=== PATIENT | male | born 1975 | race Caucasian/White ===

== ENCOUNTER 2020-07-26 07:29 | Outpatient (CLI) | payer OTHER, SELFPAY ==
[2020-07-26 08:48] LABS: Hemoglobin A1C 5.9 % (<5.7)
== END 2020-07-26 07:30 | disposition home or self-care (01) ==
PROVIDERS: PCP Internal Medicine; Visit Provider Nurse Practitioner
DX: R73.9 Hyperglycemia, unspecified (principal)
CPT/HCPCS: 36415; 83036

== ENCOUNTER 2021-12-04 13:24 | Outpatient (CLI) | payer BC, SELFPAY ==
--- NOTE | ~2021-12-04 | CT_ITS ---
EXAMINATION: CT diagnostic chest wo con DATE: 12/04/2021 10:53 INDICATION: Shortness of breath TECHNIQUE: Computed tomography (CT) of the chest was performed without intravenous contrast. The dose -length product (DLP) was 469.57 mGy-cm. Automated exposure control and iterative reconstruction tech Equidate[employer] were employed. COMPARISON: None FINDINGS: The lungs are free of acute opacities. There is no pleural effusion or pneumothorax. No pat hologically enlarged thoracic lymph nodes are identified. The heart size is normal. There is a modera te-sized sliding hiatal hernia. IMPRESSION: 1. No acute cardiopulmonary abnormality. Reviewed, dictated and finalized at location A. ER GUARD
[2021-12-04 10:44] LABS: Basophils Percent Auto 0.5 % (0.2-1.2); Eosinophils Absolute Auto 0.1 K/mm3 (0-0.3); Eosinophils Percent Auto 1.7 % (0-4.4); Hematocrit 34.5 % (42.0-52.0); Hemoglobin 11.3 g/dL (14.0-18.0); Immature Granulocyte Absolute 0.02 K/mm3 (0.00-0.031); Immature Granulocyte Percent A 0.3 % (0-0.5); Lymphocytes Absolute Auto 2.27 K/mm3 (0.9-3.2); Lymphocytes Percent Auto 30.1 % (18.3-44.2); Mean Corpuscular HGB Conc 32.8 g/dl (32-36); Mean Corpuscular Hemoglobin 28.5 pg (26-34); Mean Corpuscular Volume 86.9 fl (80-100); Mean Platelet Volume 10.1 fl (7.4-10.4); Monocytes Absolute Auto 0.7 K/mm3 (0.1-0.6); Monocytes Percent Auto 9.4 % (2.6-8.5); Neutrophils Absolute Auto 4.4 K/mm3 (1.3-6.7); Platelet Count Result 208 k/mm3 (150-375); Red Blood Count 3.97 M/mm3 (4.6-6.20); Red Cell Distribution Width 14.7 % (11.5-14.5); White Blood Count 7.5 K/mm3 (4.5-10.0)
[2021-12-04 10:53] LABS: Alanine Aminotransferase 18 U/L (4-50); Albumin Level 4.2 g/dL (3.5-5.1); Alkaline Phosphatase 56 U/L (38-126); Anion Gap 6 mmol/L (8-16); Aspartate Amino Transferase 25 U/L (17-59); Bilirubin,Total 0.8 mg/dL (0.2-1.3); Blood Urea Nitrogen 27 mg/dL (9-20); Carbon Dioxide 30 mmol/L (22-30); Chloride 100 mmol/L (98-107); Estimated Glomerular Filt Rate > 60; Glucose 100 mg/dL (65-110); INR 0.9; Potassium 4.7 mmol/L (3.4-5.0); Prothrombin Time 11.8 Seconds (11.1-14.7); Sodium 136 mmol/L (137-145)
[2021-12-04 11:57] LABS: D Dimer 0.22 ug/mL (<0.48)
[2021-12-04 13:33] LABS: Iron 99 ug/dL (49-181)
[2021-12-04 13:42] LABS: Percent Iron Saturation 24 % (20-50)
== END 2021-12-04 13:25 | disposition home or self-care (01) ==
PROVIDERS: PCP Internal Medicine; Visit Provider Internal Medicine
DX: R06.00 Dyspnea, unspecified (principal); Z86.16 Personal history of COVID-19; I10 Essential (primary) hypertension; Z79.899 Other long term (current) drug therapy; Z82.49 Family history of ischemic heart disease and other diseases of the circulatory system; D64.9 Anemia, unspecified
CPT/HCPCS: 36415; 71250; 80053; 82728; 83540; 83550; 85025; 85380; 85610; 85730

== ENCOUNTER 2021-12-05 08:17 | Outpatient (CLI) | payer BC, SELFPAY ==
[2021-12-05 09:21] LABS: Add Urine Microscopic? YES; Appearance Urine Clear (Clear); Bilirubin Urine Negative (Negative); Blood Urine Negative (Negative); Color Urine Yellow (Yellow); Glucose Urine UA Negative (Negative); Ketones Urine Negative (Negative); Leukocyte Esterase Ur Negative LEU/UL (Negative); Mucus Urine Rare /lpf; Nitrate Urine Negative (Negative); Protein Urine Negative (Negative); RBC Urine 0-2 /hpf (0-2); Specific Grav Ur 1.016 (1.001-1.035); Urobilinogen Urine Negative mg/dL (<2.0); WBC Urine 0-3 /hpf
[2021-12-05 09:36] LABS: Hemoglobin A1C 6.4 % (<5.7)
[2021-12-05 09:38] LABS: LDL Cholesterol Direct 80 mg/dL
[2021-12-05 09:47] LABS: Cholesterol 162 mg/dL (0-200); HDL Direct 41 mg/dL; Triglycerides 323 mg/dL (<150)
[2021-12-05 09:57] LABS: Free T4 Free Thyroxine 0.91 ng/mL (0.78-2.19)
[2021-12-08 03:45] LABS: Insulin Level Total 16.7 uIU/mL (<=19.6)
[2021-12-08 05:45] LABS: C-Peptide 3.68 ng/mL (0.80-3.85)
[2021-12-10 10:13] LABS: Testosterone Total 236 ng/dL (250-1100)
== END 2021-12-05 08:18 | disposition home or self-care (01) ==
PROVIDERS: PCP Internal Medicine; Visit Provider Internal Medicine
DX: Z79.899 Other long term (current) drug therapy (principal); Z68.35 Body mass index [BMI] 35.0-35.9, adult; E78.2 Mixed hyperlipidemia; Z13.29 Encounter for screening for other suspected endocrine disorder; R07.9 Chest pain, unspecified; R53.83 Other fatigue
CPT/HCPCS: 36415; 80061; 81001; 83036; 83525; 84403; 84439; 84443; 84681

== ENCOUNTER 2021-12-12 08:26 | Outpatient (CLI) | payer BC, SELFPAY ==
[2021-12-15 18:27] LABS: Testosterone Total 258 ng/dL (250-1100)
== END 2021-12-12 08:27 | disposition home or self-care (01) ==
PROVIDERS: PCP Internal Medicine; Visit Provider Internal Medicine
DX: E29.1 Testicular hypofunction (principal)
CPT/HCPCS: 36415; 84403

== ENCOUNTER 2022-01-30 07:55 | Day surgery (SDC) | payer BC, SELFPAY ==
[2022-01-30 08:11] VITALS: BMI 33.3
[2022-01-30 09:38] VITALS: BP 136/93; PULSE 77; RESP 16; TEMP 36.5; O2SAT 99; BMI 33.3
[2022-01-30 09:46] LABS: Glucose Point of Care 118 mg/dl (65-105)
--- NOTE | 2022-01-30 09:54 | WPDANESEPPF ---
Anes - Initial Pre Proc Eval Procedure: Operation Date: 01/30/22 13:00 Proposed Procedures p Esophagogastroduodenoscopy & Colonoscopy - Wes Constantino MD Date/Time: 01/30/22 09:54 Surgeon: Wes Constantino MD Pre Op Diagnosis: ANEMIA Patient Data Age: 46 Gender: M Height: 1.75 m Weight: 102.2 kg Last Vital Signs Temp 36.5 C 01/30/22 09:38 Pulse 77 01/30/22 09:38 Resp 16 01/30/22 09:38 BP 136/93 H 01/30/22 09:38 Pulse Ox 99 01/30/22 09:38 Allergies Allergy/AdvReac Type Severity Reaction Status Date / Time No Known Allergies Allergy Unknown Verified 01/30/22 09:36 Home Medications Medication Instructions Recorded Confirmed Type aspirin 81 mg tablet,delayed 81 mg PO DAILY 09/11/19 01/30/22 History release cholecalciferol (vitamin D3) 25 25 mcg PO DAILY 12/04/21 01/30/22 History mcg (1,000 unit) capsule famotidine 20 mg tablet 20 mg PO PRN 12/04/21 01/30/22 History ferrous sulfate 325 mg (65 mg 325 mg PO BID #180 tablet 12/15/21 01/30/22 Rx iron) tablet metformin 500 mg tablet 500 mg PO BID #180 tablet 12/15/21 01/30/22 Rx hydrochlorothiazide 12.5 mg tablet 12.5 mg PO DAILY #90 tablet 12/20/21 01/30/22 Rx olmesartan 40 mg tablet 40 mg PO DAILY #90 tablet 12/20/21 01/30/22 Rx rosuvastatin 10 mg tablet 10 mg PO DAILY #90 tablet 12/20/21 01/30/22 Rx Laboratory Tests 01/30/22 09:44 POC Capillary Glucose 118 mg/dl H mg/dl (65-105) Patient hx anesthesia problems: none Family hx anesthesia problems: none Results Review: All pre-operative results and documents have been reviewed as part of the pre-operative evaluation. 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 Personal history of COVID-19 Pre-diabetes Seasonal allergies Transaminitis Umbilical hernia Surgical History Surgical History (Reviewed 12/15/21 @ 10:29 by Christine Mueller [facility]) H/O abdominal surgery 2017 History of hernia surgery 2007 Family History Family History (Reviewed 12/15/21 @ 10:29 by Christine Mueller [facility]) Mother Family history of kidney disease Father Family history of lung cancer, Onset Age: 62 Social History Social History (Reviewed 12/15/21 @ 10:29 by Christine Mueller [facility]) Smoking packs per day: 0.5 Smoking cigarettes per day: 10.0 Years smoked: 10 Smoking pack-years: 5.00 Smoking status: Former smoker Tobacco type: cigarettes Smoking end date: 01/19/01 Alcohol intake: current Drinks per week: 3 Alcohol use details: Pt drink socially. Substance use: never Substance use type: does not use Living arrangements: with family Spiritual care concerns: No Anes - Eval Final PreProcedure Day of Procedure 01/30/22 09:54 Patient weight: obese Heart: regular rate and rhythm Lungs: clear to auscultation and normal air movement Airway: Mallampati scale class II Neurological: alert and oriented Last oral intake: >/= 8 hours ASA classification: III Emergent: no Anesthetic plan: proceed Anesthesia type and monitoring: general GIVS and standard monitoring Results Review: All pre-operative results and documents have been reviewed as part of the pre-operative evaluation. Informed Consent: The patient's anesthetic plan and its attendant risks and benefits were discussed with the patient/family/POA. Questions were solicited and answers provided to the satisfaction of the patient/family/POA.
[2022-01-30] MEDS: LACTATED RINGERS 1,000 ML 150 ML IV CONT (09:57)
--- NOTE | 2022-01-30 10:10 | WPDGICN ---
Assessment and Plan Assessment and plan (1) Encounter for screening colonoscopy: Code(s): Z12.11 - Encounter for screening for malignant neoplasm of colon Status: Acute Assessment and Plan: Patient presents for screening colonoscopy. Appears to be at average risk for colon polyps. Further recommendations will be given after endoscopy. (2) Heartburn: Code(s): R12 - Heartburn Status: Acute Assessment and Plan: Patient has a long history of heartburn. Previously identified as having a hiatal hernia. He currently is doing well on no medications. Has never had an EGD. An EGD is requested to assess his hiatal hernia and history of GE reflux disease. GI Consult Note Consult date/time: 01/30/22 10:10 HPI: Issa Berger is a 46 year old male Presents for colonoscopy and EGD. Patient presents for neoplasia screening colonoscopy because of his age. Current weight appetite bowel movements are normal. He denies abdominal pain. He has had no bleeding. Family history is noncontributory. Neoplasia screening will be performed today. Patient additionally has a long history of heartburn. He states 20 years ago was found to have a hiatal hernia. Initially maintained on PPI acid suppression therapy. Over the last several years he has discontinued this in uses aloe preparation instead. He denies any significant heartburn at the present time. Because of his long history of heartburn an EGD is requested will be performed. At the present time patient denies dysphagia. He has had no weight loss or bleeding. Review of Systems Review of Systems: All systems reviewed & are unremarkable except as noted in HPI and below PMFSH Past Medical History Medical History (Updated 01/30/22 @ 10:12 by Wes Constantino MD) BMI 35.0-35.9,adult Colon cancer screening COVID-19 Dyspnea Encounter to establish care Family history of abdominal aortic aneurysm Family history of abdominal aortic aneurysm (AAA) Family history of heart disease Follow up Hyperlipidemia Hypertension Metabolic syndrome On nursing home drug therapy Personal history of COVID-19 Pre-diabetes Seasonal allergies Transaminitis Umbilical hernia Surgical History Surgical History H/O abdominal surgery 2017 History of hernia surgery 2008 Family History Family History Mother Family history of kidney disease Father Family history of lung cancer, Onset Age: 62 Social History Social History Smoking packs per day: 0.5 Smoking cigarettes per day: 10.0 Years smoked: 10 Smoking pack-years: 5.00 Smoking status: Former smoker Tobacco type: cigarettes Smoking end date: 01/19/01 Alcohol intake: current Drinks per week: 3 Alcohol use details: Pt drink socially. Substance use: never Substance use type: does not use Living arrangements: with family Spiritual care concerns: No Meds Home Medications and Allergies Home Medications Medication Instructions Recorded Confirmed Type aspirin 81 mg tablet,delayed 81 mg PO DAILY 09/11/19 01/30/22 History release cholecalciferol (vitamin D3) 25 25 mcg PO DAILY 12/04/21 01/30/22 History mcg (1,000 unit) capsule famotidine 20 mg tablet 20 mg PO PRN 12/04/21 01/30/22 History ferrous sulfate 325 mg (65 mg 325 mg PO BID #180 tablet 12/15/21 01/30/22 Rx iron) tablet metformin 500 mg tablet 500 mg PO BID #180 tablet 12/15/21 01/30/22 Rx hydrochlorothiazide 12.5 mg tablet 12.5 mg PO DAILY #90 tablet 12/20/21 01/30/22 Rx olmesartan 40 mg tablet 40 mg PO DAILY #90 tablet 12/20/21 01/30/22 Rx rosuvastatin 10 mg tablet 10 mg PO DAILY #90 tablet 12/20/21 01/30/22 Rx Allergies Allergy/AdvReac Type Severity Reaction Status Date / Time No Known Allergies Allergy Unknown Verified 01/30/22
--- NOTE | 2022-01-30 10:34 | SUR.OPER ---
EGD: [id number] COLON: [id number]
[2022-01-30 10:55] VITALS: BP 101/64; PULSE 76; RESP 16; O2SAT 96
[2022-01-30 11:05] VITALS: BP 110/72; PULSE 74; RESP 18; O2SAT 100
[2022-01-30 11:15] VITALS: BP 116/78; PULSE 76; RESP 20; O2SAT 98
== END 2022-01-30 11:42 | disposition home or self-care (01) ==
PROVIDERS: PCP Internal Medicine; Visit Provider Internal Medicine Gastroenterology
PROC: 0DJ08ZZ Inspection of Upper Intestinal Tract, Via Natural or Artificial Opening Endoscopic (ICD-10-PCS; CPT 43235; principal; 2022-01-30 13:00)
DX: Z12.11 Encounter for screening for malignant neoplasm of colon (principal); R12 Heartburn; K21.00 Gastro-esophageal reflux disease with esophagitis, without bleeding; K22.2 Esophageal obstruction; K44.9 Diaphragmatic hernia without obstruction or gangrene; I10 Essential (primary) hypertension; E78.5 Hyperlipidemia, unspecified; E88.81 Metabolic syndrome and other insulin resistance; Z79.899 Other long term (current) drug therapy; Z87.891 Personal history of nicotine dependence
CPT/HCPCS: 45378; 43239; 43450; 82948; 88305; J2704; J7120

== ENCOUNTER 2022-04-30 06:59 | Outpatient (CLI) | payer BC, SELFPAY ==
[2022-04-30 07:53] LABS: Basophils Percent Auto 0.6 % (0.2-1.2); Eosinophils Absolute Auto 0.2 K/mm3 (0-0.3); Eosinophils Percent Auto 3.3 % (0-4.4); Hematocrit 45.7 % (42.0-52.0); Hemoglobin 14.7 g/dL (14.0-18.0); Immature Granulocyte Absolute 0.01 K/mm3 (0.00-0.031); Immature Granulocyte Percent A 0.2 % (0-0.5); Lymphocytes Absolute Auto 1.58 K/mm3 (0.9-3.2); Lymphocytes Percent Auto 32.6 % (18.3-44.2); Mean Corpuscular HGB Conc 32.2 g/dl (32-36); Mean Corpuscular Hemoglobin 27.8 pg (26-34); Mean Corpuscular Volume 86.4 fl (80-100); Mean Platelet Volume 10.7 fl (7.4-10.4); Monocytes Absolute Auto 0.5 K/mm3 (0.1-0.6); Monocytes Percent Auto 10.7 % (2.6-8.5); Neutrophils Absolute Auto 2.5 K/mm3 (1.3-6.7); Neutrophils Percent Auto 52.6 % (45.5-73.1); Platelet Count Result 161 k/mm3 (150-375); Red Blood Count 5.29 M/mm3 (4.6-6.20); Red Cell Distribution Width 15.9 % (11.5-14.5); White Blood Count 4.8 K/mm3 (4.5-10.0)
[2022-04-30 08:10] LABS: Alanine Aminotransferase 15 U/L (6-50); Albumin Level 4.2 g/dL (3.5-5.1); Alkaline Phosphatase 46 U/L (38-126); Anion Gap 6 mmol/L (8-16); Aspartate Amino Transferase 23 U/L (17-59); Bilirubin,Total 1.3 mg/dL (0.2-1.3); Blood Urea Nitrogen 14 mg/dL (9-20); Calcium 8.9 mg/dL (8.4-10.2); Carbon Dioxide 30 mmol/L (22-30); Chloride 99 mmol/L (98-107); Cholesterol 138 mg/dL (0-200); Estimated Glomerular Filt Rate > 60; Glucose 113 mg/dL (65-110); HDL Direct 42 mg/dL; Potassium 4.3 mmol/L (3.4-5.0); Sodium 135 mmol/L (137-145); Triglycerides 249 mg/dL (<150)
[2022-04-30 08:21] LABS: LDL Cholesterol Direct 64 mg/dL
[2022-04-30 08:33] LABS: Iron 156 ug/dL (49-181)
[2022-04-30 08:37] LABS: Hemoglobin A1C 5.6 % (<5.7)
[2022-04-30 08:42] LABS: Percent Iron Saturation 37 % (20-50)
[2022-05-03 09:12] LABS: Testosterone Total 1081 ng/dL (250-1100)
== END 2022-04-30 07:00 | disposition home or self-care (01) ==
LOC: ANHLAB 07:01
PROVIDERS: PCP Internal Medicine; Visit Provider Internal Medicine
DX: R73.03 Prediabetes (principal); E29.1 Testicular hypofunction; D50.9 Iron deficiency anemia, unspecified; Z79.899 Other long term (current) drug therapy; I10 Essential (primary) hypertension
CPT/HCPCS: 36415; 80053; 80061; 82306; 82728; 83036; 83540; 83550; 84403; 85025

== ENCOUNTER 2022-09-07 08:07 | Outpatient (CLI) | payer BC, SELFPAY ==
--- NOTE | ~2022-09-07 | XR_ITS ---
XR lumbar spine min 4V DATE: 09/07/2022 08:45 INDICATION: Right low back pain, right thigh pain. No injury. TECHNIQUE: AP, lateral, coned lateral lumbosacral views. Flexion and extension lateral views COMPARISON: None FINDINGS: Mild levoscoliosis of the lower thoracic and lumbar spine. L1 limbus vertebra. Moderately severe degenerative disc disease and associated mild retrolisthesis at L1-2. Remaining lumbar and lumbosacral interspaces appear well preserved. No fracture or bone destruction o r spondylolisthesis is noted otherwise. No lumbar spine fracture or bone destruction. The included lower thoracic and lumbar pedicles are int act. The sacral iliac joints appear normal. IMPRESSION: Moderately severe degenerative disease at L1-2 with associated mild retrolisthesis L1 limbus vertebra Mild levoscoliosis Reviewed, dictated and finalized at location B. FOAM KISS MAKER
[2022-09-07 08:28] LABS: Basophils Percent Auto 0.3 % (0.2-1.2); Eosinophils Absolute Auto 0.1 K/mm3 (0-0.3); Eosinophils Percent Auto 1.9 % (0-4.4); Hematocrit 48.9 % (42.0-52.0); Hemoglobin 15.6 g/dL (14.0-18.0); Immature Granulocyte Absolute 0.01 K/mm3 (0.00-0.031); Immature Granulocyte Percent A 0.2 % (0-0.5); Lymphocytes Absolute Auto 1.57 K/mm3 (0.9-3.2); Lymphocytes Percent Auto 26.4 % (18.3-44.2); Mean Corpuscular HGB Conc 31.9 g/dl (32-36); Mean Corpuscular Hemoglobin 27.4 pg (26-34); Mean Corpuscular Volume 85.8 fl (80-100); Mean Platelet Volume 9.7 fl (7.4-10.4); Monocytes Absolute Auto 0.6 K/mm3 (0.1-0.6); Monocytes Percent Auto 10.4 % (2.6-8.5); Neutrophils Absolute Auto 3.6 K/mm3 (1.3-6.7); Neutrophils Percent Auto 60.8 % (45.5-73.1); Platelet Count Result 182 k/mm3 (150-375); Red Cell Distribution Width 14.9 % (11.5-14.5); White Blood Count 5.9 K/mm3 (4.5-10.0)
[2022-09-07 08:38] LABS: Alanine Aminotransferase 20 U/L (6-50); Albumin Level 4.5 g/dL (3.5-5.1); Alkaline Phosphatase 42 U/L (38-126); Anion Gap 13 mmol/L (8-16); Aspartate Amino Transferase 29 U/L (17-59); Bilirubin,Total 1.5 mg/dL (0.2-1.3); Blood Urea Nitrogen 14 mg/dL (9-20); Calcium 9.1 mg/dL (8.4-10.2); Carbon Dioxide 30 mmol/L (22-30); Chloride 96 mmol/L (98-107); Cholesterol 125 mg/dL (0-200); Estimated Glomerular Filt Rate > 60; Glucose 108 mg/dL (65-110); HDL Direct 43 mg/dL; Potassium 4.5 mmol/L (3.4-5.0); Sodium 139 mmol/L (137-145); Triglycerides 196 mg/dL (<150)
[2022-09-07 08:49] LABS: LDL Cholesterol Direct 53 mg/dL
[2022-09-07 09:46] LABS: Hemoglobin A1C 6.3 % (<5.7)
[2022-09-13 05:44] LABS: Testosterone Total 1078 ng/dL (250-1100)
== END 2022-09-07 08:08 | disposition home or self-care (01) ==
PROVIDERS: PCP Internal Medicine; Visit Provider Internal Medicine
DX: M79.651 Pain in right thigh (principal); R10.2 Pelvic and perineal pain; I10 Essential (primary) hypertension; E50.9 Vitamin A deficiency, unspecified; R73.03 Prediabetes; E29.1 Testicular hypofunction
CPT/HCPCS: 36415; 72110; 80053; 80061; 82728; 83036; 84403; 85025

== ENCOUNTER 2022-09-18 14:01 | Outpatient (CLI) | payer BC, SELFPAY ==
--- NOTE | ~2022-09-18 | CT_ITS ---
EXAMINATION: CT pelvis w con DATE: 09/18/2022 14:31 INDICATION: Right-sided groin and thigh pain. TECHNIQUE: Computed tomography (CT) of the pelvis was performed with 100 cc Omnipaque 350 intravenous contrast. The dose-length product was 724.99 mGy-cm. Automated exposure control and iterative recons truction technique were employed. COMPARISON: None FINDINGS: Bowel pattern is nonobstructive. Normal appendix. No free air or free fluid. There is a fat -containing left inguinal hernia. No significant vascular abnormality. No lymphadenopathy. No focal l ytic or blastic lesions. No lymphadenopathy. IMPRESSION: 1. Small fat-containing left inguinal hernia. 2: No acute abnormality of the pelvis. Reviewed, dictated and finalized at location A. ORT UTILITY WORKER
== END 2022-09-18 14:02 | disposition home or self-care (01) ==
PROVIDERS: PCP Internal Medicine; Visit Provider Internal Medicine
DX: Z98.890 Other specified postprocedural states (principal); Z87.19 Personal history of other diseases of the digestive system; R10.31 Right lower quadrant pain; M79.651 Pain in right thigh; K40.90 Unilateral inguinal hernia, without obstruction or gangrene, not specified as recurrent
CPT/HCPCS: 72193; Q9967

== ENCOUNTER 2022-10-05 00:57 | Day surgery (SDC) | payer BC, SELFPAY ==
[2022-09-26 14:24] VITALS: BMI 36.9
[2022-10-05 11:45] VITALS: BP 147/98; PULSE 85; RESP 18; TEMP 36.2; O2SAT 98
[2022-10-05] MEDS: LACTATED RINGERS 1,000 ML 150 ML IV CONT (11:48)
--- NOTE | 2022-10-05 11:49 | WPDANESEPPF ---
Anes - Initial Pre Proc Eval Procedure: Operation Date: 10/05/22 13:00 Proposed Procedures p Esophagogastroduodenoscopy EGD - Wes Constantino MD Date/Time: 10/05/22 11:49 Surgeon: Wes Constantino MD Pre Op Diagnosis: esophagitis and esophageal ulcer Patient Data Age: 47 Gender: M Height: 1.7 m Weight: 106.9 kg Last Vital Signs Temp 97.2 F L 10/05/22 11:45 Pulse 85 10/05/22 11:45 Resp 18 10/05/22 11:45 BP 147/98 H 10/05/22 11:45 Pulse Ox 98 10/05/22 11:45 O2 Del Method Room Air 10/05/22 11:45 Allergies Allergy/AdvReac Type Severity Reaction Status Date / Time No Known Allergies Allergy Unknown Verified 10/05/22 11:44 Home Medications Medication Instructions Recorded Confirmed Type aspirin 81 mg tablet,delayed 81 mg PO DAILY 09/11/19 10/05/22 History release (Adult Low Dose Aspirin) ferrous sulfate 325 mg (65 mg 325 mg PO BID #180 tabs 12/15/21 10/05/22 Rx iron) tablet cetirizine 10 mg tablet (Zyrtec) 10 mg PO DAILY PRN Allergy Symptoms 09/18/22 10/05/22 History metformin 500 mg tablet See Rx Instructions .Route 09/18/22 10/05/22 Rx .COMPLEX #90 tabs olmesartan 40 mg tablet 40 mg PO DAILY #90 tabs 09/18/22 10/05/22 Rx omeprazole 20 mg capsule,delayed 20 mg PO DAILY 09/18/22 10/05/22 History release rosuvastatin 10 mg tablet 10 mg PO DAILY #90 tabs 09/18/22 10/05/22 Rx testosterone enanthate 200 mg/mL 200 mg IM WEEKLY 09/18/22 10/05/22 History intramuscular syringe Patient hx anesthesia problems: none Family hx anesthesia problems: none Results Review: All pre-operative results and documents have been reviewed as part of the pre-operative evaluation. [facility] Past Medical History Medical History (Reviewed 09/18/22 @ 08:46 by Christine Mueller [facility]) BMI 33.0-33.9,adult BMI 34.0-34.9,adult BMI 35.0-35.9,adult Colon cancer screening COVID-19 Dyspnea Encounter for preventive health examination Encounter for routine adult health examination without abnormal findings Encounter to establish care Esophageal ulcer Family history of abdominal aortic aneurysm Family history of abdominal aortic aneurysm (AAA) Family history of heart disease Follow up Hyperlipidemia Hypertension Incisional hernia, without obstruction or gangrene Metabolic syndrome 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 Personal history of COVID-19 Pre-diabetes Right thigh pain Seasonal allergies Transaminitis Transaminitis Umbilical hernia Vitamin D deficiency Surgical History Surgical History (Reviewed 09/18/22 @ 08:46 by Christine Mueller [facility]) H/O abdominal surgery 2017 History of hernia surgery 2008 Family History Family History (Reviewed 09/18/22 @ 08:46 by Christine Mueller [facility]) Mother Family history of kidney disease Father Family history of lung cancer, Onset Age: 62 Social History Social History (Reviewed 09/18/22 @ 08:48 by Christine Mueller [facility]) Smoking packs per day: 0.5 Smoking cigarettes per day: 10.0 Years smoked: 10 Smoking pack-years: 5.00 Smoking status: Former smoker Tobacco type: cigarettes Smoking end date: 01/19/01 Alcohol intake: current Drinks per week: 3 Alcohol use details: Pt drink socially. Substance use: never Substance use type: does not use Lack of Transportation: No Lack of Food: Never True Current Housing: I Have Housing Concerned About Future Housing: No Difficulty Paying Gas/Electric Bills: No Difficulty Paying for Meds: No Currently Unemployed: No Education: Bachelor's Degree Difficulty w/ Childcare or Family Care: No Living arrangements: with family Gender identity (if verbalized by the patient): Male Spiritual care concerns: No Anes - Eval Final PreProcedure Day of Procedure 10/05/22 11:49 Patient weight: obese Heart: regular rate and rhythm Lungs: clear to auscultation Airway: Mallampati scale class III Neurological: alert and oriented Last oral intake: >/= 8 hours A
[2022-10-05 11:54] LABS: Glucose Point of Care 100 mg/dl (65-105)
--- NOTE | 2022-10-05 12:06 | PM.HPGS ---
History of Present Illness History of Present Illness Consent: Risks, benefits, and alternatives have been discussed and questions answered. Patient agrees to proceed with procedure. Chief complaint: esophagitis and esophageal ulcer Narrative: Issa Berger is a 47 year old male Presents for follow-up EGD. Patient has a history of iron deficiency anemia. He also has a history of heartburn. EGD several months ago revealed ulcerative esophagitis with distal esophageal stricture. The stricture was dilated. Biopsies of the ulcer were benign. Patient has been maintained on omeprazole 20mg p.o. daily. He no longer has heartburn. Denies any significant dysphagia. He presents today for follow-up EGD to document healing of the previous ulcer. Patient currently on iron replacement for iron deficiency. As well as omeprazole. Colonoscopy performed several months ago was unremarkable Review of Systems Review of Systems: Review of systems noncontributory. 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 Personal history of COVID-19 Pre-diabetes Right thigh pain Seasonal allergies Transaminitis Transaminitis Umbilical hernia Vitamin D deficiency Surgical History Surgical History H/O abdominal surgery 2017 History of hernia surgery 2007 Family History Family History Mother Family history of kidney disease Father Family history of lung cancer, Onset Age: 62 Social History Social History Smoking packs per day: 0.5 Smoking cigarettes per day: 10.0 Years smoked: 10 Smoking pack-years: 5.00 Smoking status: Former smoker Tobacco type: cigarettes Smoking end date: 01/19/01 Alcohol intake: current Drinks per week: 3 Alcohol use details: Pt drink socially. Substance use: never Substance use type: does not use Lack of Transportation: No Lack of Food: Never True Current Housing: I Have Housing Concerned About Future Housing: No Difficulty Paying Gas/Electric Bills: No Difficulty Paying for Meds: No Currently Unemployed: No Education: Bachelor's Degree Difficulty w/ Childcare or Family Care: No Living arrangements: with family Gender identity (if verbalized by the patient): Male Spiritual care concerns: No Meds Home Medications and Allergies Home Medications Medication Instructions Recorded Confirmed Type aspirin 81 mg tablet,delayed 81 mg PO DAILY 09/11/19 10/05/22 History release (Adult Low Dose Aspirin) ferrous sulfate 325 mg (65 mg 325 mg PO BID #180 tabs 12/15/21 10/05/22 Rx iron) tablet cetirizine 10 mg tablet (Zyrtec) 10 mg PO DAILY PRN Allergy Symptoms 09/18/22 10/05/22 History metformin 500 mg tablet See Rx Instructions .Route 09/18/22 10/05/22 Rx .COMPLEX #90 tabs olmesartan 40 mg tablet 40 mg PO DAILY #90 tabs 09/18/22 10/05/22 Rx omeprazole 20 mg capsule,delayed 20 mg PO DAILY 09/18/22 10/05/22 History release rosuvastatin 10 mg tablet 10 mg PO DAILY #90 tabs 09/18/22 10/05/22 Rx testosterone enanthate 200 mg/mL 200 mg IM WEEKLY 09/18/22 10/05/22 History intramuscular syringe Allergies Allergy/AdvReac Type Severity Reaction Status Date / Time No Known Allergies Allergy Unknown Verifie
[2022-10-05] MEDS: BENZOCAINE (*SP) 60 ML SPRAY CAN (HURRICAINE) 1 SPRAY MUCOUS MEM (12:15)
[2022-10-05 12:25] VITALS: BP 122/87; PULSE 84; RESP 25; O2SAT 93
[2022-10-05 12:35] VITALS: BP 138/93; PULSE 93; RESP 18; O2SAT 95
[2022-10-05 12:45] VITALS: BP 121/81; PULSE 87; RESP 20; O2SAT 94
== END 2022-10-05 13:17 | disposition home or self-care (01) ==
PROVIDERS: PCP Internal Medicine; Visit Provider Internal Medicine Gastroenterology
PROC: 0DJ08ZZ Inspection of Upper Intestinal Tract, Via Natural or Artificial Opening Endoscopic (ICD-10-PCS; CPT 43235; principal; 2022-10-05 13:00)
DX: Q39.4 Esophageal web (principal); K21.9 Gastro-esophageal reflux disease without esophagitis; Z87.11 Personal history of peptic ulcer disease; D64.9 Anemia, unspecified; I10 Essential (primary) hypertension; E78.5 Hyperlipidemia, unspecified; R73.03 Prediabetes; Z79.84 Long term (current) use of oral hypoglycemic drugs; Z79.82 Long term (current) use of aspirin; Z87.891 Personal history of nicotine dependence; E66.9 Obesity, unspecified; Z68.36 Body mass index [BMI] 36.0-36.9, adult
CPT/HCPCS: 43450; 43235; 82948; J2704; J7120

== ENCOUNTER 2023-01-23 09:45 | Outpatient (CLI) | payer BC, SELFPAY ==
[2023-01-23 10:18] LABS: Basophils Percent Auto 0.6 % (0.2-1.2); Eosinophils Absolute Auto 0.1 K/mm3 (0-0.3); Eosinophils Percent Auto 1.9 % (0-4.4); Hematocrit 50.6 % (42.0-52.0); Hemoglobin 16.3 g/dL (14.0-18.0); Immature Granulocyte Absolute 0.01 K/mm3 (0.00-0.031); Immature Granulocyte Percent A 0.2 % (0-0.5); Lymphocytes Absolute Auto 1.57 K/mm3 (0.9-3.2); Lymphocytes Percent Auto 29.7 % (18.3-44.2); Mean Corpuscular HGB Conc 32.2 g/dl (32-36); Mean Corpuscular Hemoglobin 28.2 pg (26-34); Mean Corpuscular Volume 87.7 fl (80-100); Monocytes Absolute Auto 0.5 K/mm3 (0.1-0.6); Monocytes Percent Auto 9.5 % (2.6-8.5); Neutrophils Absolute Auto 3.1 K/mm3 (1.3-6.7); Neutrophils Percent Auto 58.1 % (45.5-73.1); Platelet Count Result 189 k/mm3 (150-375); Red Blood Count 5.77 M/mm3 (4.6-6.20); Red Cell Distribution Width 14.6 % (11.5-14.5); White Blood Count 5.3 K/mm3 (4.5-10.0)
[2023-01-23 10:27] LABS: Alanine Aminotransferase 19 U/L (6-50); Albumin Level 4.6 g/dL (3.5-5.1); Alkaline Phosphatase 45 U/L (38-126); Anion Gap 7 mmol/L (8-16); Aspartate Amino Transferase 26 U/L (17-59); Bilirubin,Total 1.8 mg/dL (0.2-1.3); Blood Urea Nitrogen 17 mg/dL (9-20); Calcium 8.9 mg/dL (8.4-10.2); Carbon Dioxide 31 mmol/L (22-30); Chloride 98 mmol/L (98-107); Cholesterol 125 mg/dL (0-200); Estimated Glomerular Filt Rate > 60; Glucose 102 mg/dL (65-110); HDL Direct 38 mg/dL; Potassium 4.4 mmol/L (3.4-5.0); Sodium 136 mmol/L (137-145); Triglycerides 188 mg/dL (<150)
[2023-01-23 10:38] LABS: LDL Cholesterol Direct 64 mg/dL
[2023-01-23 11:10] LABS: Iron 73 ug/dL (49-181)
[2023-01-23 11:20] LABS: Percent Iron Saturation 16 % (20-50)
[2023-01-23 12:20] LABS: Hemoglobin A1C 5.9 % (<5.7)
[2023-01-28 12:50] LABS: Testosterone Total 970 ng/dL (250-1100)
== END 2023-01-23 09:46 | disposition home or self-care (01) ==
LOC: ANHLAB 09:48
PROVIDERS: PCP Internal Medicine; Visit Provider Internal Medicine
DX: R73.03 Prediabetes (principal); I10 Essential (primary) hypertension; D64.9 Anemia, unspecified; E78.2 Mixed hyperlipidemia
CPT/HCPCS: 36415; 80053; 80061; 82728; 83036; 83540; 83550; 84403; 85025

== ENCOUNTER 2023-06-14 07:56 | Outpatient (CLI) | payer BC, SELFPAY ==
[2023-06-14 08:07] LABS: Basophils Percent Auto 0.5 % (0.2-1.2); Eosinophils Absolute Auto 0.1 K/mm3 (0-0.3); Eosinophils Percent Auto 2.1 % (0-4.4); Hematocrit 54.3 % (42.0-52.0); Hemoglobin 17.6 g/dL (14.0-18.0); Immature Granulocyte Absolute 0.01 K/mm3 (0.00-0.031); Immature Granulocyte Percent A 0.2 % (0-0.5); Lymphocytes Absolute Auto 1.65 K/mm3 (0.9-3.2); Lymphocytes Percent Auto 28.3 % (18.3-44.2); Mean Corpuscular HGB Conc 32.4 g/dl (32-36); Mean Corpuscular Hemoglobin 28.9 pg (26-34); Mean Platelet Volume 9.9 fl (7.4-10.4); Monocytes Absolute Auto 0.5 K/mm3 (0.1-0.6); Monocytes Percent Auto 9.1 % (2.6-8.5); Neutrophils Absolute Auto 3.5 K/mm3 (1.3-6.7); Neutrophils Percent Auto 59.8 % (45.5-73.1); Platelet Count Result 226 k/mm3 (150-375); Red Cell Distribution Width 14.2 % (11.5-14.5); White Blood Count 5.8 K/mm3 (4.5-10.0)
[2023-06-14 08:25] LABS: Alanine Aminotransferase 21 U/L (6-50); Albumin Level 4.6 g/dL (3.5-5.1); Alkaline Phosphatase 46 U/L (38-126); Anion Gap 5 mmol/L (8-16); Aspartate Amino Transferase 27 U/L (17-59); Bilirubin,Total 1.6 mg/dL (0.2-1.3); Blood Urea Nitrogen 15 mg/dL (9-20); Carbon Dioxide 32 mmol/L (22-30); Chloride 99 mmol/L (98-107); Estimated Glomerular Filt Rate > 60; Glucose 119 mg/dL (65-110); Potassium 4.8 mmol/L (3.4-5.0); Sodium 136 mmol/L (137-145)
[2023-06-14 08:46] LABS: Iron 98 ug/dL (49-181)
[2023-06-14 08:56] LABS: Percent Iron Saturation 23 % (20-50)
[2023-06-14 09:09] LABS: Vitamin D 25 Hydroxy 46.1 ng/mL
[2023-06-18 07:08] LABS: Testosterone Total 1252 ng/dL (250-1100)
== END 2023-06-14 07:57 | disposition home or self-care (01) ==
PROVIDERS: PCP Internal Medicine; Visit Provider Internal Medicine
DX: E55.9 Vitamin D deficiency, unspecified (principal); E34.9 Endocrine disorder, unspecified; E29.1 Testicular hypofunction; D50.9 Iron deficiency anemia, unspecified; I10 Essential (primary) hypertension
CPT/HCPCS: 36415; 80053; 82306; 82728; 83540; 83550; 84403; 85025

== ENCOUNTER 2023-08-24 08:27 | Outpatient (CLI) | payer BC, SELFPAY ==
--- NOTE | 2023-08-24 08:35 | ECHO_ITS ---
Patient Info Name: Issa Berger Age: 48 years : 1975 Gender: Male Ht: 69 in Wt: 222 lbs BSA: 2.25 m2 HR: 90 bpm BP: 154 / 107 mmHg Heart Rhythm: Sinus Rhythm Technical Quality: Good Exam Date: 08/24/2023 8:59 AM Exam Location: Echo Lab Patient Status: Outpatient Admit Date: 08/24/2023 Staff Ordering Physician: Javier Donis MD Beef Boner: Venu Amos RDCS Attending Provider: Javier Donis MD Referring Physician: Gagandeep PENN; Exam Type: CA echo doppler color flow Study Info Indications - essential hypertension Complete two-dimensional, color flow and Doppler transthoracic echocardiogram is performed. Summary 1. Complete two-dimensional, color flow and Doppler transthoracic echocardiogram is performed. 2. Left ventricular chamber dimension is normal. 3. Left ventricular systolic function is normal, estimated at 60-65%. 4. There is moderate concentric increased left ventricular wall thickness. 5. The left ventricular diastolic function is grade II diastolic dysfunction. 6. E/e' 10 is mildly elevated. 7. There is trace mitral valve regurgitation. 8. There is trace tricuspid valve regurgitation. 9. No pulmonary hypertension, estimated pulmonary arterial systolic pressure is 14 mmHg. Left Ventricle E/e' 10 is mildly elevated. Left ventricular chamber dimension is normal. Left ventricular systolic function is normal, estimated at 60-65%. There is moderate concentric increased left ventricular wall thickness. The left ventricular diastolic function is grade II diastolic dysfunction. Right Ventricle Right ventricular systolic function is normal and with normal TAPSE 2.4 cm. Right ventricular chamber dimension is normal. Left Atria Left atrial chamber dimension is normal. Right Atria Right atrial chamber dimension is normal. Aortic Valve The aortic valve is trileaflet. There is no aortic valve stenosis. There is no aortic valve regurgitation. Pulmonic Valve There is no pulmonic regurgitation. Mitral Valve There is no mitral valve stenosis. There is trace mitral valve regurgitation. Tricuspid Valve There is trace tricuspid valve regurgitation. No pulmonary hypertension, estimated pulmonary arterial systolic pressure is 14 mmHg. Pericardium/Pleural There is no pericardial effusion. Inferior Vena Cava Normal inferior vena cava with >50% collapse upon inspiration consistent with normal right atrial pressure, 5 mmHg. Aorta The aortic root size at the sinus of Valsalva is normal. Left Ventricular Outflow Tract Name Value Normal LVOT 2D LVOT Diameter 2.2 cm LVOT Doppler LVOT Peak Gradient 3 mmHg LVOT Mean Gradient 2 mmHg LVOT VTI 19 cm LVOT VTI/AV VTI Ratio 0.9 LVOT Stroke Volume 70 ml LVOT CO 5.1 l/min LVOT CI 2.3 l/min/m2 Pulmonic Valve Name Value Normal RVOT Do
== END 2023-08-24 08:28 | disposition home or self-care (01) ==
PROVIDERS: PCP Internal Medicine; Visit Provider Internal Medicine
DX: I10 Essential (primary) hypertension (principal); R94.31 Abnormal electrocardiogram [ECG] [EKG]; Z82.49 Family history of ischemic heart disease and other diseases of the circulatory system; R79.9 Abnormal finding of blood chemistry, unspecified
CPT/HCPCS: 93306

== ENCOUNTER 2023-11-05 14:56 | Outpatient (CLI) | payer BC, SELFPAY ==
--- NOTE | ~2023-11-05 | XR_ITS ---
XR chest 2V DATE: 11/05/2023 15:07 INDICATION: Cough. Abnormal chest sounds. TECHNIQUE: PA and lateral views COMPARISON: December 04, 2021 CTA chest 10/17/2014 2 view chest FINDINGS: Moderately large hiatal hernia. Heart size is within normal range. No hilar or mediastinal enlargement is detected. No pulmonary infiltrate or consolidation, pleural effusion or pulmonary vascular congestion or pneumo thorax is detected. Dextro scoliosis and degenerative change of the thoracic spine. IMPRESSION: No active cardiopulmonary disease Moderately large hiatal hernia Reviewed, dictated and finalized at location L. TEST EXAMINER
[2023-11-05 15:30] LABS: Basophils Percent Auto 0.5 % (0.2-1.2); Eosinophils Absolute Auto 0.2 K/mm3 (0-0.3); Eosinophils Percent Auto 3.7 % (0-4.4); Hematocrit 50.4 % (42.0-52.0); Hemoglobin 16.2 g/dL (14.0-18.0); Immature Granulocyte Absolute 0.02 K/mm3 (0.00-0.031); Immature Granulocyte Percent A 0.3 % (0-0.5); Lymphocytes Absolute Auto 2.12 K/mm3 (0.9-3.2); Lymphocytes Percent Auto 35.9 % (18.3-44.2); Mean Corpuscular HGB Conc 32.1 g/dl (32-36); Mean Corpuscular Hemoglobin 28.8 pg (26-34); Mean Corpuscular Volume 89.7 fl (80-100); Monocytes Absolute Auto 0.6 K/mm3 (0.1-0.6); Monocytes Percent Auto 10.7 % (2.6-8.5); Neutrophils Absolute Auto 2.9 K/mm3 (1.3-6.7); Neutrophils Percent Auto 48.9 % (45.5-73.1); Platelet Count Result 224 k/mm3 (150-375); Red Blood Count 5.62 M/mm3 (4.6-6.20); Red Cell Distribution Width 13.7 % (11.5-14.5); White Blood Count 5.9 K/mm3 (4.5-10.0)
[2023-11-05 15:40] LABS: Alanine Aminotransferase 20 U/L (6-50); Albumin Level 4.5 g/dL (3.5-5.1); Alkaline Phosphatase 53 U/L (38-126); Anion Gap 5 mmol/L (8-16); Aspartate Amino Transferase 27 U/L (17-59); Bilirubin,Total 1.1 mg/dL (0.2-1.3); Blood Urea Nitrogen 21 mg/dL (9-20); Calcium 9.5 mg/dL (8.4-10.2); Carbon Dioxide 32 mmol/L (22-30); Chloride 99 mmol/L (98-107); Cholesterol 193 mg/dL (0-200); Estimated Glomerular Filt Rate > 60; Glucose 67 mg/dL (65-110); HDL Direct 47 mg/dL; Potassium 4.2 mmol/L (3.4-5.0); Sodium 136 mmol/L (137-145); Triglycerides 430 mg/dL (<150)
[2023-11-05 15:50] LABS: LDL Cholesterol Direct 94 mg/dL
[2023-11-05 16:10] LABS: Prostate Specific Antigen 0.9 ng/mL (< OR = 4.0)
[2023-11-05 16:21] LABS: Hemoglobin A1C 6.3 % (<5.7)
== END 2023-11-05 14:57 | disposition home or self-care (01) ==
PROVIDERS: PCP Internal Medicine; Visit Provider Internal Medicine
DX: Z12.5 Encounter for screening for malignant neoplasm of prostate (principal); R05.9 Cough, unspecified; R06.89 Other abnormalities of breathing; I10 Essential (primary) hypertension; R73.01 Impaired fasting glucose; E78.5 Hyperlipidemia, unspecified; E55.9 Vitamin D deficiency, unspecified
CPT/HCPCS: 36415; 71046; 80053; 80061; 82306; 83036; 84153; 85025; G0103

== ENCOUNTER 2024-03-13 07:18 | Outpatient (CLI) | payer BC, SELFPAY ==
[2024-03-13 08:12] LABS: Basophils Percent Auto 0.5 % (0.2-1.2); Eosinophils Percent Auto 0.2 % (0-4.4); Hematocrit 48.8 % (42.0-52.0); Immature Granulocyte Absolute 0.08 K/mm3 (0.00-0.031); Immature Granulocyte Percent A 1.2 % (0-0.5); Lymphocytes Absolute Auto 1.72 K/mm3 (0.9-3.2); Lymphocytes Percent Auto 25.8 % (18.3-44.2); Mean Corpuscular HGB Conc 32.8 g/dl (32-36); Mean Corpuscular Hemoglobin 28.8 pg (26-34); Mean Corpuscular Volume 87.8 fl (80-100); Mean Platelet Volume 9.6 fl (7.4-10.4); Monocytes Absolute Auto 0.5 K/mm3 (0.1-0.6); Monocytes Percent Auto 7.4 % (2.6-8.5); Neutrophils Absolute Auto 4.3 K/mm3 (1.3-6.7); Neutrophils Percent Auto 64.9 % (45.5-73.1); Platelet Count Result 220 k/mm3 (150-375); Red Blood Count 5.56 M/mm3 (4.6-6.20); Red Cell Distribution Width 13.3 % (11.5-14.5); White Blood Count 6.7 K/mm3 (4.5-10.0)
[2024-03-13 08:38] LABS: Alanine Aminotransferase 19 U/L (6-50); Albumin Level 4.7 g/dL (3.5-5.1); Alkaline Phosphatase 50 U/L (38-126); Anion Gap 8 mmol/L (4-12); Aspartate Amino Transferase 24 U/L (17-59); Blood Urea Nitrogen 21 mg/dL (9-20); Calcium 9.9 mg/dL (8.4-10.2); Carbon Dioxide 31 mmol/L (22-30); Chloride 98 mmol/L (98-107); Cholesterol 137 mg/dL (0-200); Estimated Glomerular Filt Rate > 60; Glucose 108 mg/dL (65-110); HDL Direct 47 mg/dL; Potassium 4.5 mmol/L (3.4-5.0); Sodium 137 mmol/L (137-145); Triglycerides 210 mg/dL (<150)
[2024-03-13 08:49] LABS: LDL Cholesterol Direct 70 mg/dL
[2024-03-13 08:50] LABS: Free T4 Free Thyroxine 1.01 ng/mL (0.78-2.19)
[2024-03-13 09:17] LABS: Hemoglobin A1C 6.1 % (<5.7)
[2024-03-16 12:18] LABS: Testosterone Total 522 ng/dL (250-1100)
== END 2024-03-13 07:19 | disposition home or self-care (01) ==
PROVIDERS: PCP Internal Medicine; Visit Provider Internal Medicine
DX: E78.5 Hyperlipidemia, unspecified (principal); R73.03 Prediabetes; I10 Essential (primary) hypertension; Z79.899 Other long term (current) drug therapy; Z13.29 Encounter for screening for other suspected endocrine disorder
CPT/HCPCS: 36415; 80053; 80061; 83036; 84403; 84439; 84443; 85025

== ENCOUNTER 2024-09-14 10:10 | Outpatient (CLI) | payer BC, SELFPAY ==
--- NOTE | ~2024-09-14 | XR_ITS ---
[id number] Ordering provider: Javier Donis MD History: . M54.2 - Cervicalgia . Comparison: None. FINDINGS: VERTEBRAL BODIES: Normal height and alignment. No visible fracture or subluxation. The dens is intact . DISK SPACES: Slight Narrowing of the disc C5-C6 and C6-C7. Multilevel uncovertebral joint osteoarthri tic changes. PARASPINOUS SOFT TISSUES: No prevertebral soft tissue swelling. IMPRESSION: No acute osseous abnormality cervical spine. Multilevel degenerative disc disease. Reviewed, dictated and finalized at location A. RVISOR INSTRUMENT MAINTENANCE
--- NOTE | ~2024-09-14 | XR_ITS ---
3 VIEWS THORACIC SPINE Ordering provider: Javier Donis MD History: . SEVERE NECK AND R SHOULDER PAIN /SWOLLEN ZYPHOID TIP . Comparison: None. FINDINGS: VERTEBRAL BODIES: Mild kyphosis with multiple level anterior loss of height in the midthoracic area m ost likely chronic. Degenerative changes of the spine. Mild dextroscoliosis. Otherwise, Normal height and alignment. No visible definite acute fracture or subluxation. DISK SPACES: Normal. SOFT TISSUES: Sliding hiatus hernia. IMPRESSION: No definite acute osseous abnormality of the thoracic spine. Reviewed, dictated and finalized at location A. USIONIST
--- NOTE | ~2024-09-14 | XR_ITS ---
XR chest 2V Ordering provider: Javier Donis MD History: 49 years Male with . M54.9 - Dorsalgia, unspecified . Comparison: None. FINDINGS: MEDIASTINUM: The cardiac silhouette is not enlarged. sliding hiatus hernia. LUNGS: No infiltrates, effusions or pneumothorax. OTHER: No free air under the diaphragm. Degenerative changes of the spine. Mild dextroscoliosis. IMPRESSION: No acute cardiopulmonary pathology. Sliding hiatus hernia. Reviewed, dictated and finalized at location A. AKE PROFESSIONAL
--- NOTE | ~2024-09-14 | XR_ITS ---
XR shoulder RT min 2V Ordering provider: Javier Donis MD History: . M25.511 - Pain in right shoulder . Comparison: None. FINDINGS: BONES: No acute fracture or dislocation. Bone island seen in the humeral head. JOINT SPACES: The acromioclavicular joint is normal. The glenohumeral joint is normal. SOFT TISSUES: Normal. IMPRESSION: No acute osseous abnormality right shoulder. Reviewed, dictated and finalized at location A. KER AND SEWER
[2024-09-14 10:29] LABS: Basophils Percent Auto 0.4 % (0.2-1.2); Eosinophils Absolute Auto 0.1 K/mm3 (0-0.3); Eosinophils Percent Auto 2.8 % (0-4.4); Hematocrit 47.5 % (42.0-52.0); Hemoglobin 15.8 g/dL (14.0-18.0); Immature Granulocyte Absolute 0.01 K/mm3 (0.00-0.031); Immature Granulocyte Percent A 0.2 % (0-0.5); Lymphocytes Absolute Auto 1.38 K/mm3 (0.9-3.2); Lymphocytes Percent Auto 27.5 % (18.3-44.2); Mean Corpuscular HGB Conc 33.3 g/dl (32-36); Mean Corpuscular Hemoglobin 29.4 pg (26-34); Mean Corpuscular Volume 88.5 fl (80-100); Mean Platelet Volume 10.2 fl (7.4-10.4); Monocytes Absolute Auto 0.4 K/mm3 (0.1-0.6); Neutrophils Absolute Auto 3.1 K/mm3 (1.3-6.7); Neutrophils Percent Auto 61.1 % (45.5-73.1); Platelet Count Result 156 k/mm3 (150-375); Red Blood Count 5.37 M/mm3 (4.6-6.20); Red Cell Distribution Width 14.7 % (11.5-14.5)
[2024-09-14 10:51] LABS: Alanine Aminotransferase 12 U/L (6-50); Albumin Level 4.6 g/dL (3.5-5.1); Alkaline Phosphatase 39 U/L (38-126); Anion Gap 7 mmol/L (4-12); Aspartate Amino Transferase 21 U/L (17-59); Bilirubin,Total 1.6 mg/dL (0.2-1.3); Blood Urea Nitrogen 18 mg/dL (9-20); Calcium 9.9 mg/dL (8.4-10.2); Carbon Dioxide 32 mmol/L (22-30); Chloride 100 mmol/L (98-107); Cholesterol 116 mg/dL (0-200); Estimated Glomerular Filt Rate > 60; Glucose 103 mg/dL (65-110); HDL Direct 53 mg/dL; Potassium 4.8 mmol/L (3.4-5.0); Sodium 139 mmol/L (137-145); Triglycerides 201 mg/dL (<150)
[2024-09-14 11:02] LABS: LDL Cholesterol Direct 33 mg/dL
[2024-09-14 11:06] LABS: Free T4 Free Thyroxine 0.79 ng/mL (0.78-2.19)
[2024-09-14 22:19] LABS: Hemoglobin A1C 5.7 % (<5.7)
== END 2024-09-14 10:11 | disposition home or self-care (01) ==
PROVIDERS: PCP Internal Medicine; Visit Provider Internal Medicine
DX: M50.322 Other cervical disc degeneration at C5-C6 level (principal); M50.323 Other cervical disc degeneration at C6-C7 level; K44.9 Diaphragmatic hernia without obstruction or gangrene; M25.511 Pain in right shoulder; I10 Essential (primary) hypertension; E78.5 Hyperlipidemia, unspecified; R73.03 Prediabetes; E34.9 Endocrine disorder, unspecified; Z79.899 Other long term (current) drug therapy; Z13.29 Encounter for screening for other suspected endocrine disorder
CPT/HCPCS: 36415; 71046; 72040; 72072; 73030; 80053; 80061; 83036; 84403; 84439; 84443; 85025

== ENCOUNTER 2024-09-24 12:43 | Outpatient (CLI) | payer BC, SELFPAY ==
--- NOTE | ~2024-09-24 | MR_ITS ---
EXAMINATION: MR shoulder RT wo con DATE: 09/24/2024 13:40 INDICATION: Right shoulder pain. TECHNIQUE: Magnetic resonance imaging (MRI) of the right shoulder was performed without intravenous c ontrast. Sequences included axial PD-weighted FS FSE, coronal oblique PD-weighted FS FSE and T2-weigh hermann FS FSE, and sagittal oblique T2-weighted FS FSE and T1-weighted FSE. COMPARISON: Right shoulder radiographs 09/14/2024 FINDINGS: Coracoacromial arch: The acromion undersurface is curved in morphology (type II). There is mild acromioclavicular joint os teoarthritis. There is mild subacromial/subdeltoid bursitis. Rotator cuff: There is an interstitial tear of supraspinatus and anterior infraspinatus tendons at their distal att achments measuring 1.5 cm anterior to posterior by 3.3 cm proximal to distal by 60% tendon thickness. Teres minor tendon is normal. There is mild subscapularis tendinopathy. Biceps tendon and glenoid labrum: Biceps tendon is in bicipital groove. There is a partial tear of intra-articular biceps tendon. There is degenerative tearing of the glenoid labrum. Fluid: There is no glenohumeral joint effusion. There is a 14 x 9 mm paralabral cyst anteroinferiorly. There is a 4 mm paralabral cyst posterosuperiorly. Bones/cartilage: There is partial-thickness cartilage loss of glenoid, deep anteroinferiorly. There is shallow partial -thickness cartilage loss of humeral head. Osteophytes are noted. IMPRESSION: 1. Partial thickness rotator cuff tear. 2. Moderate glenohumeral joint chondrosis. 3. Labral tear with paralabral cysts. 4. Partial tear of intra-articular biceps tendon. 5. Mild acromioclavicular joint osteoarthritis 6. Mild subacromial/subdeltoid bursitis. Reviewed, dictated and finalized at location A. LEY CLEANER
== END 2024-09-24 12:44 | disposition home or self-care (01) ==
PROVIDERS: PCP Internal Medicine; Visit Provider Internal Medicine
DX: M75.111 Incomplete rotator cuff tear or rupture of right shoulder, not specified as traumatic (principal); S46.211A Strain of muscle, fascia and tendon of other parts of biceps, right arm, initial encounter; S43.431A Superior glenoid labrum lesion of right shoulder, initial encounter; M94.211 Chondromalacia, right shoulder; M19.011 Primary osteoarthritis, right shoulder; M75.51 Bursitis of right shoulder; X58.XXXA Exposure to other specified factors, initial encounter
CPT/HCPCS: 73221

== ENCOUNTER 2024-10-08 08:09 | Outpatient (CLI) | payer BC, SELFPAY ==
--- NOTE | ~2024-10-08 | CT_ITS ---
EXAMINATION: CT cervical spine wo con DATE: 10/08/2024 08:34 INDICATION: Dorsalgia, unspecified. TECHNIQUE: Computed tomography (CT) of the cervical spine was performed without intravenous contrast. Automated exposure control and iterative reconstruction technique were employed. The dose-length pro duct was 294.42 mGy-cm. COMPARISON: None FINDINGS: There is 4 degrees dextrocurvature of cervical spine. Vertebral body heights are normal. Th ere is mildly decreased disc height at C5-C6 and C6-C7. The following disc levels are specifically di scussed: C2-C3: There is mild bilateral uncovertebral joint osteoarthritis. There is mild bilateral facet join t osteoarthritis. There is mild left neural foraminal stenosis. There is no central canal stenosis. C3-C4: There is no uncovertebral joint osteoarthritis. There is mild left facet joint osteoarthritis. There is no neural foraminal stenosis. There is mild central canal stenosis. C4-C5: There is no uncovertebral joint osteoarthritis. There is no facet joint osteoarthritis. There is no neural foraminal stenosis. There is mild central canal stenosis. C5-C6: There is mild bilateral uncovertebral joint osteoarthritis. There is moderate right and mild l eft facet joint osteoarthritis. There is mild right neural foraminal stenosis. There is mild central canal stenosis. C6-C7: There is mild lateral uncovertebral joint osteoarthritis. There is moderate right and mild lef t facet joint osteoarthritis. There is mild bilateral neural foraminal stenosis. There is mild centra l canal stenosis. There is moderate stenosis of left lateral recess. C7-T1: There is no uncovertebral joint osteoarthritis. There is severe bilateral facet joint osteoart hritis. There is mild right neural foraminal stenosis. There is no central canal stenosis. IMPRESSION: 1. Mild cervical spondylosis. Reviewed, dictated and finalized at location A. COM ASSISTANT
--- NOTE | ~2024-10-08 | CT_ITS ---
EXAMINATION: CT thoracic spine wo con DATE: 10/08/2024 08:34 INDICATION: Dorsalgia, unspecified. TECHNIQUE: Computed tomography (CT) of the thoracic spine was performed without intravenous contrast. Automated exposure control and iterative reconstruction technique were employed. The dose-length pro duct was 645.03 mGy-cm. COMPARISON: Thoracic spine radiographs 09/14/2024 FINDINGS: There is a large sliding hiatal hernia. There is mild atelectasis bilaterally. There is 13 degrees dextroscoliosis of thoracic spine. There is kyphosis of thoracic spine. There is mild chronic anterior wedging of T7-T11 vertebral bodies. There is mildly decreased disc height from T3-T4 throug h T9-T10. There is multilevel mild facet joint osteoarthritis. At T9-T10, there is a calcified extrus ion with mild central canal stenosis. At T11-T12, the disc is bulging with mild central canal stenosi s. No neural foraminal stenosis. IMPRESSION: 1. Mild thoracic spondylosis. 2. Thoracic dextroscoliosis. 3. Large sliding hiatal hernia. Reviewed, dictated and finalized at location A. RDOUS WASTE MANAGEMENT SPECIALIST
== END 2024-10-08 08:10 | disposition home or self-care (01) ==
LOC: GOSHIMG 08:10
PROVIDERS: PCP Internal Medicine; Visit Provider Internal Medicine
DX: M47.812 Spondylosis without myelopathy or radiculopathy, cervical region (principal); M47.815 Spondylosis without myelopathy or radiculopathy, thoracolumbar region; M41.84 Other forms of scoliosis, thoracic region; K44.9 Diaphragmatic hernia without obstruction or gangrene; M25.519 Pain in unspecified shoulder
CPT/HCPCS: 72125; 72128

== ENCOUNTER 2024-10-23 12:06 | Outpatient (CLI) | payer BC, SELFPAY ==
--- NOTE | ~2024-10-23 | CT_ITS ---
EXAMINATION: CT soft tissue neck w con DATE: 10/23/2024 12:33 INDICATION: Localized swelling, mass and lump, neck. TECHNIQUE: Computed tomography (CT) of the neck was performed with 75 mL Omnipaque-350 intravenous co ntrast. Automated exposure control and iterative reconstruction technique were employed. The dose-helen gth product was 434.23 mGy-cm. COMPARISON: None FINDINGS: There is a skin marker at left anterior neck. There are no pathologically enlarged lymph no angel. There is mild plaque in the proximal internal carotid arteries with 0% stenosis relative to norm al distal artery lumen diameters. There is mild cervical spondylosis. IMPRESSION: 1. No abnormal neck mass or lymphadenopathy. Reviewed, dictated and finalized at location A. GRATION PATROL INSPECTOR
[2024-10-23 12:41] LABS: Estimated Glomerular Filt Rate > 60
[2024-10-23 13:04] LABS: Basophils Percent Auto 0.3 % (0.2-1.2); Eosinophils Absolute Auto 0.1 K/mm3 (0-0.3); Eosinophils Percent Auto 2.2 % (0-4.4); Hematocrit 40.3 % (42.0-52.0); Hemoglobin 13.7 g/dL (14.0-18.0); Immature Granulocyte Absolute 0.01 K/mm3 (0.00-0.031); Immature Granulocyte Percent A 0.2 % (0-0.5); Lymphocytes Absolute Auto 1.93 K/mm3 (0.9-3.2); Lymphocytes Percent Auto 33.1 % (18.3-44.2); Mean Corpuscular Hemoglobin 29.5 pg (26-34); Mean Corpuscular Volume 86.9 fl (80-100); Mean Platelet Volume 10.3 fl (7.4-10.4); Monocytes Absolute Auto 0.6 K/mm3 (0.1-0.6); Monocytes Percent Auto 10.1 % (2.6-8.5); Neutrophils Absolute Auto 3.2 K/mm3 (1.3-6.7); Neutrophils Percent Auto 54.1 % (45.5-73.1); Platelet Count Result 180 k/mm3 (150-375); Red Blood Count 4.64 M/mm3 (4.6-6.20); Red Cell Distribution Width 13.4 % (11.5-14.5); White Blood Count 5.8 K/mm3 (4.5-10.0)
== END 2024-10-23 12:07 | disposition home or self-care (01) ==
PROVIDERS: PCP Internal Medicine; Visit Provider Internal Medicine
DX: R22.1 Localized swelling, mass and lump, neck (principal)
CPT/HCPCS: 36415; 70491; 85025; Q9967

== ENCOUNTER 2025-03-06 10:20 | Outpatient (CLI) | payer BC, SELFPAY ==
--- OUTSIDE RECORDS SUMMARY | 2025-03-06 10:24 | XMS_ITS | Clinical Summary ---
Author Organization [facility] Address [address] [place] [id number] Care Team Providers Care Extract Operator Name Role Phone Javier Donis MD Primary Care Provider [phone] Immunizations Immunization Administration Dates Next Due PFIZER COVID-19 (ORIGINAL FO RMULATION, PURPLE CAP) mRNA, LNP-S, PF, 30 MCG/0.3 ML DOSE 06/12/2021,05/22/2021 Social History Tobacco Use Types Packs/Day Years Used Date Smoking Tobacco: Never Assessed Sex and Gender Information Value Date Recorded Sex Assigned at Not on file Legal Sex Male 9:39 AM CDT Gender Identity Not on file Sexual Orientation Not on file Plan of Treatment Health Maintenance Due Date Last Done Comments Colorectal Cancer Screening Colonoscopy (10 Years) 1974 Annual Physical 1977 Hepatitis C 1992 DTaP, Tdap and Td Vaccines ( 1 - Tdap) 1993 Hepatitis B Vaccines (1 of 3 - 19+ 3-dose series) 1993 COVID-19 Vaccine ( - 2023-2 5 season) 2024 06/12/2021, 05/22/2021 Pneumococcal Vaccine: 50+ Years (1 of 1 - PCV) 2024 Zoster Vaccines (1 of 2) 2024 Meningococcal B Vaccine Aged Out No l onger eligible based on patient's age to complete this topic Meningococcal Vaccine Aged Out No shannan hanane eligible based on patient's age to complete this topic RSV Immunizations Under 20 Months Aged Out No longer eligible b ased on patient's age to complete this topic Insurance [facility] Care Teams Extract Operator Relationship Specialty Start Date End Date Javier Donis MD [id number] - [address] [place] [id number] PCP - General 08/19/23
[2025-03-06 11:17] LABS: Hemoglobin A1C 5.1 % (<5.7)
[2025-03-06 11:22] LABS: Alanine Aminotransferase 21 U/L (6-50); Albumin Level 4.5 g/dL (3.5-5.1); Alkaline Phosphatase 42 U/L (38-126); Anion Gap 7 mmol/L (4-12); Aspartate Amino Transferase 31 U/L (17-59); Bilirubin,Total 1.2 mg/dL (0.2-1.3); Blood Urea Nitrogen 17 mg/dL (9-20); Calcium 9.4 mg/dL (8.4-10.2); Carbon Dioxide 31 mmol/L (22-30); Chloride 101 mmol/L (98-107); Cholesterol 134 mg/dL (0-200); Estimated Glomerular Filt Rate > 60; Glucose 89 mg/dL (65-110); HDL Direct 58 mg/dL; Potassium 4.3 mmol/L (3.4-5.0); Sodium 139 mmol/L (137-145); Triglycerides 90 mg/dL (<150)
[2025-03-06 11:33] LABS: LDL Cholesterol Direct 46 mg/dL
[2025-03-06 11:38] LABS: Free T4 Free Thyroxine 1.14 ng/dL (0.78-2.19); Vitamin D 25 Hydroxy 54.9 ng/mL
[2025-03-06 11:53] LABS: Prostate Specific Antigen 0.9 ng/mL (< OR = 4.0); Thyroid Stimulating Hormone 0.995 uIU/mL (0.465-4.680)
[2025-03-10 12:08] LABS: Testosterone Total 259 ng/dL (250-1100)
== END 2025-03-06 10:21 | disposition home or self-care (01) ==
LOC: ANHLAB 10:22
PROVIDERS: PCP Internal Medicine; Visit Provider Internal Medicine
DX: E55.9 Vitamin D deficiency, unspecified (principal); I10 Essential (primary) hypertension; Z79.899 Other long term (current) drug therapy; Z13.29 Encounter for screening for other suspected endocrine disorder; E34.9 Endocrine disorder, unspecified; Z12.5 Encounter for screening for malignant neoplasm of prostate; E78.5 Hyperlipidemia, unspecified; R73.03 Prediabetes
CPT/HCPCS: 36415; 80053; 80061; 82306; 83036; 84153; 84403; 84439; 84443; G0103

== ENCOUNTER 2025-07-16 08:16 | Outpatient (CLI) | payer BC, SELFPAY ==
[2025-07-16 08:50] LABS: Hematocrit 45.9 % (42.0-52.0); Hemoglobin 15.0 g/dL (14.0-18.0); Immature Granulocyte Percent A 0.2 % (0-0.5); Lymphocytes Absolute Auto 1.60 K/mm3 (0.9-3.2); Mean Corpuscular HGB Conc 32.7 g/dl (32-36); Mean Corpuscular Hemoglobin 28.4 pg (26-34); Mean Corpuscular Volume 86.8 fl (80-100); Nucleated Red Blood Cells Absolute Auto 0.000 K/mm3 (0.0-0.012); Nucleated Red Blood Cells Perc 0.0 % (0.0-0.2); Platelet Count Result 177 k/mm3 (150-375); Red Blood Count 5.29 M/mm3 (4.6-6.20); White Blood Count 4.6 K/mm3 (4.5-10.0)
[2025-07-16 08:54] LABS: Add Urine Microscopic? YES; Appearance Urine Cloudy (Clear); Glucose Urine UA Negative (Negative); Leukocyte Esterase Ur Negative LEU/UL (Negative); Nitrate Urine Negative (Negative); Non Pathogenic Casts 0-2; Specific Grav Ur 1.024 (1.001-1.035)
[2025-07-16 09:00] LABS: Hemoglobin A1C 5.7 % (<5.7)
[2025-07-16 09:03] LABS: Anion Gap 6 mmol/L (4-12); Blood Urea Nitrogen 15 mg/dL (9-20); Calcium 9.0 mg/dL (8.4-10.2); Carbon Dioxide 30 mmol/L (22-30); Chloride 100 mmol/L (98-107); Cholesterol 147 mg/dL (0-200); Estimated Glomerular Filt Rate > 60; Glucose 86 mg/dL (65-110); HDL Direct 64 mg/dL; Potassium 4.9 mmol/L (3.4-5.0); Sodium 136 mmol/L (137-145); Triglycerides 123 mg/dL (<150)
[2025-07-16 09:38] LABS: Free T4 Free Thyroxine 0.86 ng/dL (0.78-2.19)
[2025-07-16 09:40] LABS: Thyroid Stimulating Hormone 1.720 uIU/mL (0.465-4.680)
== END 2025-07-16 08:17 | disposition home or self-care (01) ==
LOC: ANHLAB 08:17
PROVIDERS: PCP Internal Medicine; Visit Provider Internal Medicine
DX: Z13.29 Encounter for screening for other suspected endocrine disorder (principal); R73.03 Prediabetes; I10 Essential (primary) hypertension; E78.2 Mixed hyperlipidemia; Z79.899 Other long term (current) drug therapy
CPT/HCPCS: 36415; 80048; 80061; 81001; 83036; 84439; 84443; 85025